=== PATIENT | female | born 1975 | race Caucasian/White ===

== ENCOUNTER 2017-03-24 14:24 | Inpatient (IN) | payer OTHER ==
[~2017-03-24] VITALS: Ht 170.2 cm; Wt 135.5 kg
[2017-03-26] MEDS ORDERED: GLYB5TAB3 PO (11:42)
[2017-03-26] MEDS ORDERED: ACTO30TA10 PO (11:42)
[2017-03-26] MEDS ORDERED: TRAD5TAB PO (11:42)
[2017-04-13] MEDS ORDERED: GENTAMICIN SULFATE 80 MG/2 ML VIAL ONE (07:50)
[2017-04-13] MEDS ORDERED: CHLORHEXIDINE GLUCONATE 2 % 1 PACK (2 CLOTHS) TOPICAL PRN (08:15)
[2017-04-13] MEDS ORDERED: LACTATED RINGER'S 1000 ML IV PRN (08:15)
[2017-04-13] MEDS ORDERED: INSULIN HUMAN REGULAR 1,000 UNITS/10 ML VIAL SQ PRN (08:15)
[2017-04-13] MEDS ORDERED: POVIDONE IODINE 5% (ANTISEPSIS KIT) 4 APPLICATIONS EACH NARE PRN (08:15)
[2017-04-13] MEDS ORDERED: SODIUM CHLORID 0.9% 500 ML IV PRN (08:15)
[2017-04-13] MEDS ORDERED: METOPROLOL TARTRATE 25 MG TAB PO PRN (08:15)
[2017-04-13] MEDS ORDERED: AMBI10TA PO (08:26)
[2017-04-13] MEDS ORDERED: SODIUM CHLORIDE 0.9% IV SCH ×4 (08:30)
[2017-04-13] MEDS ORDERED: CHLORHEXIDINE GLUCONATE 4% SOLN 120 ML BTL TOPICAL SCH (08:30)
[2017-04-13] MEDS ORDERED: EXPAREL PERI-ARTICULAR INJECTION (TOTAL VOL. 100 ML) P-ARTICULR SCH ×2 (08:30)
[2017-04-13] MEDS ORDERED: TRANEXAMIC ACID IV SCH ×4 (08:30)
[2017-04-13] MEDS ORDERED: ceFAZolin 2 GM PREMIX 50 ML IV SCH (08:30)
[2017-04-13 08:32] VITALS: BP 119/69; PULSE 62; RESP 20; TEMP 99.4; O2SAT 96
[2017-04-13] MEDS ORDERED: BUPIVACAINE LIPOSOME PF 1.3% 20 ML VIAL ONE (09:19)
[2017-04-13] MEDS ORDERED: MIDAZOLAM HCL 2 MG/2 ML VIAL ONE (09:24)
[2017-04-13] MEDS ORDERED: fentaNYL CITRATE 250 MCG/5 ML AMP ONE (09:24)
[2017-04-13] MEDS ORDERED: DEXAMETHASONE SOD PHOS 4 MG/ML VIAL ONE (09:24)
[2017-04-13] MEDS ORDERED: FAMOTIDINE 20 MG/2 ML VIAL ONE (09:24)
[2017-04-13] MEDS ORDERED: ACETAMINOPHEN 1000 MG/100 ML VIAL IV ONE (09:25)
[2017-04-13] MEDS ORDERED: ONDANSETRON HCL 4 MG/2 ML VIAL IVP PRN (09:30)
[2017-04-13] MEDS ORDERED: Post-op Orders (for Pharmacy) MISC XX ONE (09:30)
[2017-04-13] MEDS ORDERED: SODIUM CHLORIDE 0.9% FLUSH 5 ML FLUSH IVF PRN (09:30)
[2017-04-13] MEDS ORDERED: ACETAMINOPHEN/HYDROcodone 325 MG/7.5 MG TAB PO PRN (09:30)
[2017-04-13] MEDS ORDERED: MORPHINE SULFATE 4 MG/ML INJ IV PUSH PRN (09:30)
[2017-04-13] MEDS ORDERED: TRANEXAMIC ACID INJ 0 MG in SODIUM CHLORIDE 0.9% INJ 100 ML IV SCH (09:30)
[2017-04-13] MEDS ORDERED: MAGNESIUM HYDROXIDE SUSP 30 ML CUP PO PRN (09:30)
[2017-04-13] MEDS ORDERED: *MEPERIDINE 25 MG INJ VIAL PERIprocedural Use ONLY ONE (12:51)
[2017-04-13] MEDS ORDERED: DO NOT ADM ANY ANTICOAGULANT DRUGS PRN (13:00)
[2017-04-13] MEDS: KETOROLAC TROMETHAMINE 30 MG/ML (IVP) VIAL IVP SCH ×3 (13:01→22:19)
[2017-04-13] MEDS ORDERED: *morphine SULFATE 8 MG/ML PERIprocedure ONLY ONE (13:15)
[2017-04-13] MEDS ORDERED: *HYDROmorphone PF 1 MG VIAL PERIprocedural Use ONLY ONE (13:41)
[2017-04-13] MEDS ORDERED: LACTATED RINGER'S 1000 ML INJ 1,000 ML IV ONE (13:45)
[2017-04-13] MEDS ORDERED: PROPOFOL 200 MG/20 ML AMP IV ONE (13:45)
[2017-04-13] MEDS ORDERED: ONDANSETRON HCL 4 MG/2 ML VIAL IV PUSH ONE (13:45)
[2017-04-13] MEDS ORDERED: NEOSTIGMINE 3 MG/3 ML SYR IV ONE (13:45)
--- NOTE | 2017-04-13 13:48 | RADRPT ---
EXAM DATE/TIME: 04/13/2017 13:06 [place] COMPARISON: No previous studies available for comparison. INDICATIONS : Post op left knee arthroplasty. MEDICAL HISTORY : None. SURGICAL HISTORY : None. ENCOUNTER: Initial ACUITY: 1 day PAIN SCORE: Non-responsive. LOCATION: Left knee FINDINGS: Patient is status post placement of a left knee prosthesis. There is good position and alignment of t he prosthesis and bony structures. The bony structures are grossly intact. Postsurgical changes are p resent. CONCLUSION: Good position and alignment on this postoperative examination. Logan Givens MD on April 13, 2017 at 13:46 Board Certified Radiologist. This report was verified electronically.
--- NOTE | 2017-04-13 14:52 | PD.CONS ---
HPI Service [facility] Hospitalists Consult Requested By Dr. Todd Thacker Reason for Consult Medical management Primary Care Physician Tom Arroyo M.D. Diagnoses: History of Present Illness Ms. Mosley is a pleasant 41 y/o WF with diabetes mellitus and osteoarthritis. She was admitted to [facility] on 04/13/17 for elective left total knee arthroplasty with Dr. Thacker. Pt reports that she used to be a runner and this is the cause for her osteoarthritic and degenerative changes in the knee. Pt is a type 2 diabetic. She reports that her last Hgb A1C was 7.2 preoperatively. [facility] hospitalist team was consulted to help with managing the pts chronic medical issues. She takes Actos, Tradjenta, and Glyburide at home. Pt is seen post-operatively in the PACU and is without any specific complaints. She denies any abd pain, nausea/vomiting, reflux, diarrhea, constipation, chest pain, SOB or palpitations. Review of Systems Constitutional: DENIES: Fever, Chills Respiratory: DENIES: Shortness of breath Cardiovascular: DENIES: Chest pain, Palpitations Gastrointestinal: DENIES: Abdominal pain, Constipation, Diarrhea, Nausea, Vomiting Genitourinary: DENIES: Hematuria Musculoskeletal: COMPLAINS OF: Joint pain Integumentary: DENIES: Rash Neurologic: DENIES: Headache Psychiatric: DENIES: Confusion Past Family Social History Past Medical History Diabetes mellitus Fibroids Obesity Osteoarthritis Past Surgical History Partial hysterectomy Reported Medications -Ambien 10 Mg PO HS PRN -Actos 30 Mg PO DAILY -Glyburide 10 Mg PO BID -Tradjenta 5 Mg PO DAILY Allergies: Coded Allergies: No Known Allergies (Verified , 09/09/13) Family History Father with diabetes mellitus Social History Denies any tobacco or illicit drug use Rare alcohol use Physical Exam Vital Signs Vital Signs Date Time Temp Pulse Resp B/P Pulse Ox O2 Delivery O2 Flow Rate FiO2 04/13/17 08:32 99.4 62 20 119/69 96 Physical Exam GENERAL: This is a well-nourished, well-developed patient, in no apparent distress. HEENT: Atraumatic. Normocephalic. No temporal or scalp tenderness. No scleral icterus. Airway patent. NECK: Trachea midline, supple, nontender. CARDIO: Regular. RESP: CTA bilaterally. No wheezes, rales, or rhonchi. ABD: +BS, soft, non-tender, nondistended. EXT: Left knee bandages are c/d/i and LLE in CPM machine NEURO: Awake and alert. Motor and sensory grossly within normal limits. Normal speech. Laboratory Laboratory Tests Test 04/13/17 08:20 Blood Type O POSITIVE Antibody Screen NEGATIVE Imaging Last Impressions Knee X-Ray 04/13/17 0907 Signed Impressions: Service Date/Time: Thursday, April 13, 2017 13:06 - CONCLUSION: Good position and alignment on this postoperative examination. Logan Givens MD Assessment and Plan Problem List: (1) Primary osteoarthritis of left knee Status: Chronic Plan: - Pt is s/p left total knee arthroplasty with Dr. Thacker on 04/13/17 - Post-op pain control per Ortho - PT daily - IS - Constipation precautions - DVT prophylaxis (2) Status post total left knee replacement Status: Acute Plan: - See above. (3) Diabetes mellitus type 2, noninsulin dependent Status: Chronic Plan: - Home meds continued - NovoLog SSI - Accu check Assessment and Plan Patient examined. Assessment and plan formulated with Glory Dean PA-C. I agree with the above. medically stable. seen in pacu s/p tka. dm meds resumed. ssi ordered. will follow. Glory Dean April 13, 2017 14:52 Ramiro Staton MD April 13, 2017 21:11
[2017-04-13 14:56] VITALS: BP 121/67; PULSE 86; RESP 17; TEMP 97.6; O2SAT 93
[2017-04-13] MEDS: INSULIN ASPART SUPPLEMENTAL SCALE SQ SCH ×2 (16:00→20:50)
[2017-04-13] MEDS: ACETAMINOPHEN/HYDROcodone 325 MG/7.5 MG TAB PO PRN ×2 (16:18→20:38)
[2017-04-13 20:15] VITALS: BP 111/58; PULSE 56; RESP 17; TEMP 97.8; O2SAT 93
[2017-04-13] MEDS: glyBURIDE 5 MG TAB PO SCH (20:39)
[2017-04-13] MEDS: SODIUM CHLORIDE 0.9% FLUSH 5 ML FLUSH IVF SCH (20:39)
[2017-04-13] MEDS: LACTATED RINGER'S 1000 ML INJ 1,000 ML IV SCH (20:47)
[2017-04-13] MEDS ORDERED: ZOLPIDEM TARTRATE 5 MG TAB PO PRN (21:00)
--- NOTE | 2017-04-13 23:16 | MP ---
cc: Juvenal POST. DATE OF SURGERY: 04/13/2017 PREOPERATIVE DIAGNOSIS: Primary osteoarthritis, left knee. POSTOPERATIVE DIAGNOSIS: Primary osteoarthritis, left knee. OPERATION PERFORMED Left total knee arthroplasty using Adilene Triathlon prosthesis, (uncemented). SURGEON Nora Post MD ANESTHESIA General endotracheal with supplemental adductor canal block and local. INDICATIONS AND FINDINGS This 41-year-old woman has had left knee pain for most of her adult life. She had pain initially after feeling a snap in her knee when running. This progressively worsened over the past several years so that ambulation and activities had made this substantially difficult. She is able to walk up to a mile but has to stop because of pain. She has difficulty ascending and descending stairs, stiffness when sitting, inability to fully extend, intermittent giving way with cracking, popping, swelling and pain. Treatment has included analgesics, nonsteroidal anti-inflammatory agents, exercise, intra-articular cortical steroid injections, ambulatory aids, physical therapy and other exercises. Physical findings showed significant patellofemoral crepitation with tenderness in the patellofemoral and lateral compartments. X-rays and MRI showed advanced arthritis in the left knee with lateral articular cartilage disruption and lateral patellofemoral irregularity and exposed subchondral bone. Operative findings are consistent with the radiographic findings. There are tricompartmental osteophytes. The patellofemoral joint had areas of loss of articular cartilage to expose subchondral bone. There was a semi-captured loose body at the lateral aspect of the femur. The lateral compartment had areas of delamination and exposed subchondral bone in the lateral femoral condyle and lateral tibial plateau. PROCEDURE The patient was brought to the operating room and a general endotracheal anesthetic was administered. She was placed into a supine position on the operating table and an adductor canal block was carried out. She received prophylactic antibiotics in the form of Ancef preoperatively according to protocol and also received tranexamic acid. A pneumatic tourniquet was placed about the left thigh. The leg was then prepped with alcohol, Hibiclens and ChloraPrep, and draped in the usual manner with the knee draped free. Inappropriate time out procedure was carried out. Local anesthesia was administered into the incision site prior to making the incision. An anterior incision was made going from about three fingerbreadths above the superior medial pole of the patella down to the tibial tubercle. The incision was deepened through the subcutaneous tissues to the retinacular structures which were exposed medially and laterally. A medial retinacular incision was made on the superior medial pole of the patella down to the tibial tubercle and up into the quadriceps tendon splitting it longitudinally in the medial one third. The patella was reflected. Medial and lateral dissection was carried out. Hemostasis was achieved throughout the procedure with electrocautery. The medial and lateral meniscectomies were initiated. The anterior cruciate ligament was excised. The posterior surface of the patella was excised with the oscillating saw taking care to prevent injury to ligamentous structures. The suprapatellar medial plica were identified and removed. The patella protector was applied. The loose body that was identified that was semi attached was removed. Fenestrations were made in the distal femur and proximal tibia at the appropriate position. Whitesides line was marked. The distal femoral cutting guide and jig were then assembled for a 5 degree 8 millimeter cut. The cutting block was stabilized with pins. The jig was removed. The distal femoral cut was completed with the oscillating saw. The distal femoral sizing guide was then positioned in place along the Whitesides line and the epicondylar axis and stabilized with pins. The size was determined to be between a size 4 and size 5. A size 4 cutting block was positioned in place by checking this, indicated that it would notch the femur. A size 5 cutting block was positioned. Anterior and posterior cuts were made followed by posterior and anterior chamfer cuts. The size 4 would have notched. The osteophytes were trimmed from the edges of the femur. The medial and lateral meniscectomies were completed. The proximal tibial cutting guide which was intramedullary was positioned in place and stabilized with a pin for rotation. The depth of cut was verified with a stylus. The proximal tibial cut was made with the oscillating saw taking care to prevent injury to neurovascular and ligamentous structures. Proximal tibia was removed. The size was determined to be a size 5. The osteophytes were trimmed from the posterior aspect of the femur. The size 5 tibial baseplate trial was positioned in place with a 9 mm spacer. The femoral trial size [address] and impacted into place as well. The tibia was positioned for rotation and stabilized with pins. The patella drill guide was used and drill holes made in the patella for 35 millimeter patella. The trial prosthesis was positioned. The knee was taken through a range of motion. The lateral retinaculum was slightly tight, therefore, a lateral retinacular release was carried out from the inside. This gave excellent tracking. The femoral drill holes were made. Femoral patella trials were removed. The tibial spacer was removed. The tibial and femoral bone plugs were placed in position. The tibial punch was impacted through its guide and removed. The tibial drill guide was positioned in place and drill holes made. Local anesthesia was administered throughout the knee with Exparel. The tibial baseplate was then impacted into place and seated appropriately. The tibial spacer was inserted and impacted into place. The femoral component was then impacted onto the femur which had been cleaned with pulse lavage as well. This was seated appropriately. After cleaning the patella, the patella implant was positioned in place and held with the patella vice. This was tightened appropriately. Drains were brought out the superolateral aspect of the suprapatellar pouch. The remainder of the Exparel was injected throughout the knee. Wound closure then commenced using 0 Vicryl interrupted [id number] sutures for retinacular structures, 2-0 Vicryl interrupted simple sutures with buried knots for the subcutaneous tissues and 4-0 Monocryl continuous subcuticular closure for the skin. The wound was dressed with Steri-Strips followed by dry dressing, sterile Sof-Rol, cooling pad, further sterile Sof-Rol and William bandage from the base of the toe to midthigh. The patient was transferred from the operating room to the recovery room in satisfactory condition having tolerated the procedure well. Counts were correct. Specimens none. Estimated blood loss 200 mL. MD YOANDY Meza/HETAL /12:31 PM /10:58 PM
[2017-04-14 00:15] VITALS: BP 101/52; PULSE 75; RESP 16; TEMP 97.4; O2SAT 95
[2017-04-14 04:00] VITALS: BP 98/54; PULSE 81; RESP 16; TEMP 97.4; O2SAT 95
[2017-04-14] MEDS: KETOROLAC TROMETHAMINE 30 MG/ML (IVP) VIAL IVP SCH ×4 (04:04→21:43)
[2017-04-14] MEDS: INSULIN ASPART SUPPLEMENTAL SCALE SQ SCH ×4 (06:27→21:40)
[2017-04-14 07:08] LABS: AUTOMATED NEUTROPHIL # 8.8 TH/MM3 (1.8-7.7); BASOPHIL % 0.2 % (0.0-2.0); HEMATOCRIT 33.6 % (35.0-46.0); HEMO FLAGS DIFF FINAL; LYMPH % 17.8 % (9.0-44.0); LYMPHOCYTE # 2.1 TH/MM3 (1.0-4.8); MEAN CELL VOLUME 89.9 FL (80.0-100.0); MEAN CORPUSCULAR HEMOGLOBIN 29.6 PG (27.0-34.0); MONO % 8.1 % (0.0-8.0); NEUT % 73.9 % (16.0-70.0); PLATELET COUNT 169 TH/MM3 (150-450); RED BLOOD COUNT 3.73 MIL/MM3 (4.00-5.30); RED CELL DISTRIBUTION WIDTH 12.9 % (11.6-17.2); WHITE BLOOD COUNT 11.8 TH/MM3 (4.0-11.0)
--- NOTE | 2017-04-14 07:16 | PD.ORT.PN ---
Subjective Post Op Day #: 1 Subjective Remarks She has been OOB [place] [facility] [place], but reports some vertigo. There is not a great deal of pain at this time. It is well controlled. PT was limited yesterday to walking to the recliner. Range of Motion -20 to 90 degrees. Distance Walked 4 steps, then 6 steps. Objective Vitals Vital Signs Date Time Temp Pulse Resp B/P Pulse Ox O2 Delivery O2 Flow Rate FiO2 04/14/17 04:00 97.4 81 16 98/54 95 04/14/17 00:15 97.4 75 16 101/52 95 04/13/17 20:15 97.8 56 17 111/58 93 04/13/17 14:56 97.6 86 17 121/67 93 04/13/17 14:15 82 14 129/66 94 Nasal Cannula 2 04/13/17 14:00 97.2 79 14 131/67 94 Nasal Cannula 2 04/13/17 13:45 79 14 129/68 93 Nasal Cannula 2 04/13/17 13:30 71 12 135/68 94 Nasal Cannula 3 04/13/17 13:15 78 12 133/71 94 Nasal Cannula 3 04/13/17 13:00 75 15 120/68 92 Nasal Cannula 3 04/13/17 12:45 85 14 146/82 92 Simple Mask 6 04/13/17 12:34 96.9 91 14 144/80 96 Simple Mask 6 04/13/17 08:32 99.4 62 20 119/69 96 I/O 04/13/17 04/13/17 04/13/17 04/14/17 04/14/17 04/14/17 07:00 15:00 23:00 07:00 15:00 23:00 Intake Total 1793 ml 480 ml 2440 ml Output Total 660 ml 255 ml Balance 1133 ml 480 ml 2185 ml Intake Oral 480 ml 480 ml IV Total 593 ml 1960 ml Other 1200 ml Output Urine Total 350 ml 5 ml Drainage Total 110 ml 250 ml Estimated Blood Loss 200 ml # Voids 2 # Bowel Movements 0 0 Result Diagram: 04/14/17 0627 Imaging Last 24 hours Impressions Knee X-Ray 04/13/17 0942 Signed Impressions: Service Date/Time: Thursday, April 13, 2017 13:06 - CONCLUSION: Good position and alignment on this postoperative examination. Logan Givens MD Objective Remarks She is resting comfortably, supine in bed in the CPM. The neurovascular status is intact. The dressing is dry and intact. Assessment & Plan Ortho Post Op Day #: 1 Problem List: (1) Status post total left knee replacement Plan: Continue postop care and PT. CPM will be held in flexion for 2 hours. Assessment and Plan Condition: Good. Orthopaedically stable. DVT prophylaxis: Sequentials, TEDs, ASA 81 mg BID. Discharge plans: Home with [facility]. Has appointment. Rx [place] 7.5/325. Rocio Thacker MD ([place]) April 14, 2017 07:16
[2017-04-14 07:23] LABS: BICARBONATE 23.2 MEQ/L (21.0-32.0); POTASSIUM 3.7 MEQ/L (3.5-5.1)
[2017-04-14 07:36] VITALS: BP 103/51; PULSE 82; RESP 17; TEMP 97.9; O2SAT 93
[2017-04-14] MEDS ORDERED: HYDR-3580 PO (07:52)
[2017-04-14] MEDS ORDERED: ASPI-110 PO (07:52)
--- NOTE | 2017-04-14 07:55 | HHI.FF ---
Face to Face Verification Diagnosis: (1) Status post total left knee replacement Physical Therapy Gait training Knee: Total knee, Protocol: Left, Gait training, Full weight bearing Left LE Weight Bearing: WB as tolerated Left LE Range of Motion: Active ROM (AROM, AAROM, PROM, PRE. ROM goal is 0 to 135 degrees, which was rhe range in the OR.) Nursing Nursing: Dressing changes Dressing Changes: Daily dressing change, Coverderm/Primapore Additional Instructions Remove steristrips on postop day 14. I have seen patient Malina Mosley on 04/14/17. My clinical findings support the need for the requested home health care services because: Ltd mobility - disease progression Limited ability to care for self High risk of falls I certify that my clinical findings support that this patient is homebound because: Post-op weakness Unsteady gait/balance Unsafe to leave home unassisted Rocio Thacker MD ([place]) April 14, 2017 07:55
[2017-04-14] MEDS: glyBURIDE 5 MG TAB PO SCH ×2 (07:58→21:40)
[2017-04-14] MEDS: PIOGLITAZONE HCL 30 MG TAB PO SCH (07:58)
[2017-04-14] MEDS ORDERED: LINAGLIPTIN 5 MG PO SCH (09:00)
[2017-04-14] MEDS: SODIUM CHLORIDE 0.9% FLUSH 5 ML FLUSH IVF SCH ×2 (09:00→21:40)
[2017-04-14] MEDS: ASPIRIN EC 81 MG TABEC PO SCH ×2 (10:56→21:40)
[2017-04-14] MEDS: ACETAMINOPHEN/HYDROcodone 325 MG/7.5 MG TAB PO PRN ×3 (10:59→21:46)
[2017-04-14 11:16] VITALS: BP 116/63; PULSE 70; RESP 16; TEMP 98.2; O2SAT 95
[2017-04-14 16:00] VITALS: BP 107/60; PULSE 96; RESP 16; TEMP 99.2; O2SAT 94
[2017-04-14 21:25] VITALS: BP 119/72; PULSE 88; RESP 18; TEMP 99; O2SAT 95
[2017-04-14] MEDS: DOCUSATE SODIUM 100 MG CAP PO SCH (21:40)
[2017-04-15 00:05] VITALS: BP 119/69; PULSE 97; RESP 17; TEMP 98.6; O2SAT 96
[2017-04-15] MEDS: ACETAMINOPHEN/HYDROcodone 325 MG/7.5 MG TAB PO PRN ×4 (04:01→16:56)
[2017-04-15] MEDS: KETOROLAC TROMETHAMINE 30 MG/ML (IVP) VIAL IVP SCH (04:01)
[2017-04-15 05:10] VITALS: BP 142/74; PULSE 92; RESP 17; TEMP 99.1; O2SAT 97
[2017-04-15 05:11] LABS: HEMATOCRIT 31.6 % (35.0-46.0); REVIEW FLAG FINAL
[2017-04-15] MEDS: INSULIN ASPART SUPPLEMENTAL SCALE SQ SCH ×3 (06:26→16:19)
[2017-04-15 07:19] VITALS: BP 128/67; PULSE 94; RESP 17; TEMP 98.9; O2SAT 94
--- NOTE | 2017-04-15 07:23 | PD.ORT.PN ---
Subjective Post Op Day #: 2 Subjective Remarks She has been OOB. The vertigo has abated. There is not a great deal of pain at this time. It is well controlled. Range of Motion -20 to 92 degrees. Distance Walked 60 feet. Objective Vitals Vital Signs Date Time Temp Pulse Resp B/P Pulse Ox O2 Delivery O2 Flow Rate FiO2 04/15/17 00:05 98.6 97 17 119/69 96 04/14/17 21:25 99.0 88 18 119/72 95 04/14/17 16:00 99.2 96 16 107/60 94 04/14/17 11:16 98.2 70 16 116/63 95 04/14/17 07:36 97.9 82 17 103/51 93 I/O 04/14/17 04/14/17 04/14/17 04/15/17 04/15/17 04/15/17 07:00 15:00 23:00 07:00 15:00 23:00 Intake Total 2440 ml 720 ml 480 ml Output Total 255 ml 160 ml 10 ml 50 ml Balance 2185 ml 560 ml 470 ml -50 ml Intake Oral 480 ml 720 ml 480 ml IV Total 1960 ml Output Urine Total 5 ml Drainage Total 250 ml 160 ml 10 ml 50 ml # Voids 1 1 # Bowel Movements 0 0 0 Result Diagram: 04/15/17 0440 04/14/17 0627 Imaging Last 24 hours Impressions Knee X-Ray 04/13/17 0925 Signed Impressions: Service Date/Time: Thursday, April 13, 2017 13:06 - CONCLUSION: Good position and alignment on this postoperative examination. Logan Givens MD Objective Remarks She is resting comfortably, supine in bed in the CPM. The neurovascular status is intact. The original surgical dressing is dry and intact. Assessment & Plan Ortho Post Op Day #: 2 Problem List: (1) Status post total left knee replacement Plan: Continue postop care and PT. Daily DSD; remove drain. Assessment and Plan Condition: Good. Orthopaedically stable. DVT prophylaxis: Sequentials, TEDs, ASA 81 mg BID. Discharge plans: Home with [facility]. Has appointment. Rx [place] 7.5/325. Rocio Thacker MD ([place]) Apr 15, 2017 07:23
[2017-04-15] MEDS: LACTATED RINGER'S 1000 ML INJ 1,000 ML IV SCH (08:58)
[2017-04-15] MEDS: PIOGLITAZONE HCL 30 MG TAB PO SCH (08:59)
[2017-04-15] MEDS: DOCUSATE SODIUM 100 MG CAP PO SCH (08:59)
[2017-04-15] MEDS: ASPIRIN EC 81 MG TABEC PO SCH (08:59)
[2017-04-15] MEDS: glyBURIDE 5 MG TAB PO SCH (08:59)
[2017-04-15] MEDS: SODIUM CHLORIDE 0.9% FLUSH 5 ML FLUSH IVF SCH (09:00)
[2017-04-15 11:05] VITALS: BP 120/69; PULSE 92; RESP 17; TEMP 97.5; O2SAT 96
[2017-04-15 16:00] VITALS: BP 107/67; PULSE 96; RESP 17; TEMP 98.2; O2SAT 97
== END 2017-04-15 17:34 | disposition home health service (06) | DRG 470 ==
LOC: HSDI 04-13 07:29 → N06B 04-13 14:39
PROVIDERS: ADMIT Orthopaedic Surgery; ATTEND Orthopaedic Surgery
PROC: 3E0T3CZ (ICD-10-PCS; 2017-04-13)
PROC: 0SRD0JA Replacement of Left Knee Joint with Synthetic Substitute, Uncemented, Open Approach (ICD-10-PCS; principal; 2017-04-13 09:31)
DX: M17.12 Unilateral primary osteoarthritis, left knee (principal); E11.9 Type 2 diabetes mellitus without complications; Z79.84 Long term (current) use of oral hypoglycemic drugs
CPT/HCPCS: 73560; 80048; 82948; 83735; 85014; 85018; 85025; 86850; 86900; 86901; 94150; C1776; C9290; J0131; J0690; J1100; J1170; J1580; J1815; J1885; J2175; J2250; J2270; J2405; J2710; J3010; J7120

== ENCOUNTER → 2017-03-26 | Outpatient (CLI) | payer OTHER ==
[~2017-03-26] MED LIST: ACTO30TA10 PO; AMBI10TA PO; ASPI-110 PO; FLEX10TA PO; GLYB5TAB3 PO; HYDR-3580 PO; TRAD5TAB PO; Z.0.NO CURRENT MEDS
[2017-03-26 12:16] LABS: HEMATOCRIT 41.3 % (35.0-46.0); MEAN CELL VOLUME 90.3 FL (80.0-100.0); MEAN CORPUSCULAR HEMOGLOBIN 30.2 PG (27.0-34.0); MEAN CORPUSCULAR HGB CONC 33.5 % (32.0-36.0); PLATELET COUNT 207 TH/MM3 (150-450); RED BLOOD COUNT 4.58 MIL/MM3 (4.00-5.30); RED CELL DISTRIBUTION WIDTH 12.9 % (11.6-17.2); REVIEW FLAG FINAL
[2017-03-26 12:28] LABS: APTT (PATIENT) 27.1 SEC (24.3-30.1); PROTHROMBIN TIME - PATIENT 10.8 SEC (9.8-11.6)
[2017-03-26 12:34] LABS: BLOOD, URINE NEG (NEG); COMMENT (UR) CATH-CULT NOT IND; CULTURE IF INDICATED CATH CULTURE NOT IND; GLUCOSE,URINE NEG (NEG); KETONE, URINE NEG (NEG); MUCUS URINE FEW /lpf (OCC); NITRITE,URINE NEG (NEG); SQUAMOUS EPITHELIAL CELL URINE 1 /hpf (0-5); URINE COLOR YELLOW (YELLW/STRAW)
[2017-03-26 12:43] LABS: BICARBONATE 27.8 MEQ/L (21.0-32.0); POTASSIUM 3.9 MEQ/L (3.5-5.1)
--- NOTE | 2017-03-30 13:58 | EKG ---
Date Performed: 03/26/2017 Time Performed: 11:50:30 PTAGE: 41 years EKG: SINUS BRADYCARDIA BORDERLINE ECG Compared to prior tracing no significant change DOCTOR: Eros Noble Interpretating Date/Time 03/30/2017 13:57:33
== END ==
LOC: CPRE 11:18
PROVIDERS: ATTEND Orthopaedic Surgery
DX: Z01.810 Encounter for preprocedural cardiovascular examination (principal); Z01.812 Encounter for preprocedural laboratory examination; M17.12 Unilateral primary osteoarthritis, left knee; R00.1 Bradycardia, unspecified
CPT/HCPCS: 36415; 80048; 81001; 85027; 85610; 85730; 93005

== ENCOUNTER → 2017-07-06 | Day surgery (SDC) | payer OTHER ==
[~2017-07-06] VITALS: Ht 170.2 cm; Wt 113.9 kg
[~2017-07-06] MED LIST changes: +ACETAMINOPHEN/HYDROcodone 325 MG/5 MG TAB PO PRN; -ASPI-110 PO; +CHLORHEXIDINE GLUCONATE 2 % 1 PACK (2 CLOTHS) TOPICAL PRN; -FLEX10TA PO; +INSULIN HUMAN REGULAR 1,000 UNITS/10 ML VIAL SQ PRN; +LACTATED RINGER'S 1000 ML IV PRN; +MECL-62 PO; +METOPROLOL TARTRATE 25 MG TAB PO PRN; +MIDAZOLAM HCL 2 MG/2 ML VIAL ONE; +MORPHINE SULFATE 4 MG/ML INJ IV PUSH PRN; +MULT-65 PO; +ONDANSETRON HCL 4 MG/2 ML VIAL IV PRN; +POVIDONE IODINE 5% (ANTISEPSIS KIT) 4 APPLICATIONS EACH NARE PRN; +PROPOFOL 200 MG/20 ML AMP IV ONE; +SODIUM CHLORID 0.9% 500 ML IV PRN; +SODIUM CHLORIDE 0.9% FLUSH 5 ML FLUSH IVF PRN; +SODIUM CHLORIDE 0.9% FLUSH 5 ML FLUSH IVF SCH; -TRAD5TAB PO; -Z.0.NO CURRENT MEDS
[2017-07-06 11:10] VITALS: BP 123/73; PULSE 84; RESP 18; TEMP 99; O2SAT 97
--- NOTE | 2017-07-06 11:14 | MP ---
cc: Juvenal POST. DATE OF SURGERY: 07/06/2017 PREOPERATIVE DIAGNOSIS Arthrofibrosis left total knee. POSTOPERATIVE DIAGNOSIS Arthrofibrosis left total knee. OPERATION PERFORMED Closed manipulation, left knee. SURGEON Rocio Post MD ANESTHESIA General by mask. INDICATIONS AND FINDINGS This 42-year-old woman had a left total knee arthroplasty but three months ago and has had difficulty with straightening and bending the knee. She has had pain at the extremes and has not responded. Range of motion preoperatively prior to the procedure was -5 degrees extension to 90 degrees of flexion. Postoperatively range of motion was 0 degrees extension to 130 degrees of flexion limited by adipose tissue in the popliteal area. PROCEDURE The patient was brought to the operating room and a general anesthetic was administered. A closed manipulation was carefully done with the range of motion going from 0 degrees extension to 130 degrees of flexion. The patient was then transferred to the recovery room in satisfactory condition having tolerated the procedure well. There were no counts. There were no specimens. MD YOANDY Meza/LITO /10:35 AM /11:08 AM
== END | disposition home or self-care (01) ==
LOC: HSDC 09:14
PROVIDERS: ATTEND Orthopaedic Surgery
DX: M24.662 Ankylosis, left knee (principal); T84.093A Other mechanical complication of internal left knee prosthesis, initial encounter; E11.9 Type 2 diabetes mellitus without complications
CPT/HCPCS: 01380; 27570; J2250; J7120